=== PATIENT | male | born 1985 | race American Indian/Alaskan Native ===

== ENCOUNTER 2020-07-31 14:13 | Emergency (ER) | payer SELFPAY ==
[2020-07-31 14:24] VITALS: BP 142/85
[2020-07-31] MEDS ORDERED: LIDOCAINE-MPF (1%) 10 MG/1 ML VIAL 5 ML INFILTRATI ONE (14:41)
[2020-07-31] MEDS ORDERED: BUPIVACAINE/PF (0.5%) 5 MG/1 ML 10 ML VIAL INFILTRATI ONE (14:41)
--- NOTE | 2020-07-31 15:04 | Emergency Department Report ---
- General Chief complaint: Extremity Injury, Upper Stated complaint: RT HAND SPRUNG/PAIN Time Seen by Provider: 07/31/20 14:26 Source: patient Mode of arrival: Ambulatory Limitations: No Limitations - History of Present Illness Initial comments: Patient is a 34-year-old male who presents emergency room with complaints of right middle finger pain and swelling that began approximately a week ago. Patient states that he hit his right middle finger against a wooden table approximately 2 weeks ago. He denies any abrasion, laceration, bleeding. He states he just stubbed it against the table. He denies biting his nails. He denies any drainage, fever, numbness, weakness. He is able to move the finger without difficulty. No past medical history. No allergies medications. He has never had this in the past. - Related Data Previous Rx's Medication Instructions Recorded Last Taken Type Naproxen [EC-Naprosyn] 500 mg PO BID PRN #14 tablet. 07/31/20 Unknown Rx Sulfamethoxazole/Trimethoprim 1 each PO BID 7 Days #14 tablet 07/31/20 Unknown Rx [Bactrim DS TAB] Allergies Allergy/AdvReac Type Severity Reaction Status Date / Time No Known Allergies Allergy Unverified 07/31/20 14:16 Abscess Boil HPI - HPI Chief Complaint: Extremity Injury, Upper Stated Complaint: RT HAND SPRUNG/PAIN Time Seen by Provider: 07/31/20 14:26 Home Medications: Previous Rx's Medication Instructions Recorded Last Taken Type Naproxen [EC-Naprosyn] 500 mg PO BID PRN #14 tablet. 07/31/20 Unknown Rx Sulfamethoxazole/Trimethoprim 1 each PO BID 7 Days #14 tablet 07/31/20 Unknown Rx [Bactrim DS TAB] Allergies/Adverse Reactions: Allergies Allergy/AdvReac Type Severity Reaction Status Date / Time No Known Allergies Allergy Unverified 07/31/20 14:16 ED Review of Systems ROS: Stated complaint: RT HAND SPRUNG/PAIN Other details as noted in HPI Comment: All other systems reviewed and negative ED Past Medical Hx - Past Medical History Previous Medical History?: No - Surgical History Past Surgical History?: No - Medications Home Medications: Home Medications Medication Instructions Recorded Confirmed Last Taken Type Naproxen [EC-Naprosyn] 500 mg PO BID PRN #14 tablet. 07/31/20 Unknown Rx Sulfamethoxazole/Trimethoprim 1 each PO BID 7 Days #14 tablet 07/31/20 Unknown Rx [Bactrim DS TAB] ED Physical Exam - General Limitations: No Limitations General appearance: alert, in no apparent distress - Head Head exam: Present: atraumatic, normocephalic - Eye Eye exam: Present: normal appearance - ENT ENT exam: Present: mucous membranes moist - Respiratory Respiratory exam: Absent: respiratory distress, accessory muscle use - Neurological Exam Neurological exam: Present: alert, oriented X3 - Psychiatric Psychiatric exam: Present: normal affect, normal mood - Skin Skin exam: Present: warm, dry, other (2 cm area of induration and fluctuance surrounding the right middle finger nailbed, no edema down the finger, FROM of the finger, hand, wrist, no bony ttp, neurovascularly intact) ED Course Vital Signs 07/31/20 14:17 Temperature 97.8 F Pulse Rate 98 H Respiratory 18 Rate Blood Pressure 142/85 O2 Sat by Pulse 100 Oximetry - I & D Right Finger Type of Procedure: Simple Site: right middle finger nailbed Blade Size: 11 I & D Procedure: betadine prep, sterile drapes applied, sterile dressing applied Progress: Skin prepped with Betadine, digital block performed using 4 cc of 1% lidocaine without epinephrine and 4 cc of 0.5% bupivacaine without epinephrine, aspirated to make sure not in the vessel, good anesthesia achieved, Betadine prep again, sterile drapes applied, 1 cm incision made with 11 blade with moderate amount of purulent drainage expressed, irrigated with saline, patient tolerated well, no complications, bleeding controlled, sterile dressing applied ED Medical Decision Making - Medical Decision Making Patient is a 34-year-old male who presents emergency room with complaints of right middle finger pain and swelling that began approximately a week ago. Patient states that he hit his right middle finger against a wooden table approximately 2 weeks ago. He denies any abrasion, laceration, bleeding. He states he just stubbed it against the table. He denies biting his nails. He denies any drainage, fever, numbness, weakness. He is able to move the finger without difficulty. No past medical history. No allergies medications. He has never had this in the past. VSS. on exam: 2 cm area of induration and fluctuance surrounding the right middle finger nailbed, no edema down the finger, FROM of the finger, hand, wrist, no bony ttp, neurovascularly intact. examination consistent with paronychia. I&D performed per procedure note. given prescription for bactrim and naproxen. advised pt Please take medication as prescribed. Please keep area clean, dry, covered. Wash with antibacterial soap and water twice a day and pat dry. No hot tub, no pool, no soaking in water. Showering is fine. Follow-up with your primary care doctor for reexamination. Return to emergency room for any new or worsening symptoms. Critical care attestation.: If time is entered above; I have spent that time in minutes in the direct care of this critically ill patient, excluding procedure time. ED Disposition Clinical Impression: Paronychia Disposition: - TO HOME OR SELFCARE Is pt being admited?: No Does the pt Need Aspirin: No Condition: Stable Instructions: Paronychia Additional Instructions: Please take medication as prescribed. Please keep area clean, dry, covered. Wash with antibacterial soap and water twice a day and pat dry. No hot tub, no pool, no soaking in water. Showering is fine. Follow-up with your primary care doctor for reexamination. Return to emergency room for any new or worsening symptoms. Prescriptions: Sulfamethoxazole/Trimethoprim [Bactrim DS TAB] 1 each PO BID 7 Days #14 tablet Naproxen [EC-Naprosyn] 500 mg PO BID PRN #14 tablet.dr ALEXANDER Reason: pain Referrals: [facility] [Provider Group] - 2-3 Days TUAN FINN MD [Staff Physician] - 2-3 Days Time of Disposition: 15:03 Print Language: NEPALI
== END 2020-07-31 15:15 | disposition home or self-care (01) ==
LOC: ED 14:13
DX: L03.011 Cellulitis of right finger (principal); Z79.899 Other long term (current) drug therapy

== ENCOUNTER 2020-12-24 15:03 | Emergency (ER) | payer SELFPAY | END 2020-12-24 16:45 | disposition left against medical advice (07) | LOC: ED 15:03 | DX: R11.10 Vomiting, unspecified (principal); R19.7 Diarrhea, unspecified; Z53.21 Procedure and treatment not carried out due to patient leaving prior to being seen by health care provider ==